=== PATIENT | female | born 1995 | race Caucasian/White ===

== ENCOUNTER 2019-07-30 12:27 | Emergency (ER) | payer OTHER, SELFPAY ==
[2019-07-30 12:33] VITALS: BP 90/52; PULSE 77; RESP 14; TEMP 36.9; O2SAT 98
[2019-07-30 14:16] LABS: Bacteria Urine Many (>30); RBC Urine 1-5/HPF (0-5/HPF); Squamous Epithelial Cell Urine 0-1 /HPF (0-5/HPF); WBC Urine 5-10/HPF (0-5/HPF)
[2019-07-30 14:17] LABS: Culture Indicated Urine Specimen Cultured
--- NOTE | 2019-07-30 14:52 | ED_ITS ---
HPI - Female Genitourinary <ELIAS Clark - Last Filed: 07/30/19 14:56> General Chief complaint: Urogenital-Female Stated complaint: UTI Time Seen by Provider: 07/30/19 13:24 Source: patient Mode of arrival: Ambulatory Limitations: no limitations History of Present Illness HPI Narrative: 23-year-old female with history of an appendectomy, presents to the emergency department complaining of dysuria and frequency for the past 3 days. She states she noticed today she had some lower abdominal pain and is worried she may have a urinary tract infection. She denies any history of uri nary tract infections, denies vaginal discharge or concern for STDs. Patient endorses a small amount of nausea with no vomiting. She denies flank pain, fevers, chills, dizziness, chest pain, shortness of breath, abdominal pain, blood in her urine, diarrhea, constipation, or other concerns. Related Data Previous Rx's Medication Instructions Recorded nitrofurantoin monohyd/m-cryst 100 mg PO Q12H 5 Days #10 cap 07/30/19 [Macrobid] Allergies Allergy/AdvReac Type Severity Reaction Status Date / Time No Known Drug Allergies Allergy Verified 07/30/19 12:35 Review of Systems <ELIAS Clark - Last Filed: 07/30/19 14:56> Review of Systems Narrative: REVIEW OF SYSTEMS: GENERAL: Denies fever or chills. HENT: No head trauma. CARDIOVASCULAR: No chest pain. RESPIRATORY: No shortness of breath or cough. GASTROINTESTINAL: No nausea, vomiting, or abdominal pain, see HPI. GENITOURINARY: Reports dysuria, See HPI. No vaginal discharge or dyspareunia. Denies concerns for STIs MUSCULOSKELETAL: No trauma. INTEGUMENTARY: No rash, lesions, or pruritus. NEURO: No memory loss or confusion. Patient History <ELIAS Clark - Last Filed: 07/30/19 14:56> Medical History No significant medical problems (Acute) Smoker (Acute) tobacco type: cigarettes alcohol intake frequency: 0-2 drinks per day Substance Use Type: does not use Exam <ELIAS Clark - Last Filed: 07/30/19 14:56> Narrative Exam Narrative: PHYSICAL EXAMINATION: GENERAL: Well groomed, alert, and cooperative. Answers questions promptly and appropriately. Vital signs noted. HENT: Normocephalic, atraumatic. Hearing intact. EYES: No periorbital swelling. CARDIOVASCULAR: Regular rate and rhythm. S1-S2 sounds heard. No murmurs P RESPIRATORY: Normal respiratory rate, trachea midline, airway patent. No stridor, nasal flaring or accessory muscle use. Lung sounds clear without wheezes or crackles. GASTROINTESTINAL: Bowel sounds normoactive. Abdomen is soft, slight lower abdominal tenderness with palpation. No organomegaly, no palpable masses. GENITALURINARY: No CVA tenderness. MUSCULOSKELETAL: Normal gait and coordination. Equal tone and mass bilaterally. SKIN: Warm, dry, soft, appropriate color for ethnicity. No lesions, rashes, or wounds. NEURO: Alert and Oriented X 3. Good coordination. No ataxia, or sensory deficits, or cognitive issues. PSYCH: Appropriate affect and mood. Initial Vital Signs Initial Vital Signs: Vital Signs Temperature 98.5 F 07/30/19 12:33 Pulse Rate 77 07/30/19 12:33 Respiratory Rate 14 07/30/19 12:33 Blood Pressure 90/52 L 07/30/19 12:33 Pulse Oximetry 98 07/30/19 12:33 <Zaida Lees DO - Last Filed: 07/31/19 07:37> Initial Vital Signs Initial Vital Signs: Vital Signs Temperature 98.5 F 07/30/19 12:33 Pulse Rate 77 07/30/19 12:33 Respiratory Rate 14 07/30/19 12:33 Blood Pressure 90/52 L 07/30/19 12:33 Pulse Oximetry 98 07/30/19 12:33 Course <ELIAS Clark - Last Filed: 07/30/19 14:56> Orders Ordered: ED Orders 07/30/19 13:47 Urine Culture Stat Urine Microscopic Stat Vital Signs Vital signs: Vital Signs - 8 hr 07/30/19 12:33 Temperature 98.5 F Pulse Rate 77 Respiratory Rate 14 Blood Pressure 90/52 L Pulse Oximetry 98 <Zaida Lees DO - Last Filed: 07/31/19 07:37> Orders Ordered: ED Orders 07/30/19 13:47 Urine Culture Stat Urine Microscopic Stat Vital Signs Vital signs: Vital Signs - 8 hr 07/30/19 12:33 Temperature 98.5 F Pulse Rate 77 Respiratory Rate 14 Blood Pressure 90/52 L Pulse Oximetry 98 MDM - Female Genitourinary <Kyleigh ELIAS Gee - Last Filed: 07/30/19 14:56> Medical Records Attestation: I reviewed the patient's medical records. Lab Data Attestation: I reviewed the patient's lab results. Labs: Lab Results 07/30/19 Range/Units 13:47 Urine RBC 1-5/hpf (0-5/HPF) Urine WBC 5-10/hpf H (0-5/HPF) Ur Squamous Epith Cells 0-1 /hpf (0-5/HPF) Urine Bacteria Many (>30) H (None) Ur Culture Indicated? Specimen cultured Point of Care Testing Test Results Negative Urine Dip Bedside Urine Glucose Negative Bedside Urine Bilirubin - Negative Bedside Urine Ketone - Negative Urine Specific [place] 1.010 Bedside Urine Occult Blood - Negative Bedside Urine pH 7.0 Bedside Urine Protein - Negative Bedside Urine Urobilinogen - Negative Bedside Urine Nitrite - Negative Bedside Urine Leukocytes ++ 125 Esterase [facility] Narrative Medical decision making narrative: Patient's symptoms are most likely caused by urinary tract infection. Less concern for an acute abdomen due to lack of s ignificant abdominal tenderness on examination, patient has a history of an appendectomy, and she does not have any other systemic symptoms such as vomiting, fevers, or chills. Less concern for pyelonephritis due to lack of vomiting or flank tenderness. Follow-up instructions discussed and return precautions given. <Zaida Lees DO - Last Filed: 07/31/19 07:37> Lab Data Labs: Lab Results 07/30/19 Range/Units 13:47 Urine RBC 1-5/hpf (0-5/HPF) Urine WBC 5-10/hpf H (0-5/HPF) Ur Squamous Epith Cells 0-1 /hpf (0-5/HPF) Urine Bacteria Many (>30) H (None) Ur Culture Indicated? Specimen cultured Point of Care Testing Test Results Negative Urine Dip Bedside Urine Glucose Negative Bedside Urine Bilirubin - Negative Bedside Urine Ketone - Negative Urine Specific [place] 1.010 Bedside Urine Occult Blood - Negative Bedside Urine pH 7.0 Bedside Urine Protein - Negative Bedside Urine Urobilinogen - Negative Bedside Urine Nitrite - Negative Bedside Urine Leukocytes ++ 125 Esterase Discharge Plan Departure Patient Disposition: Home Clinical Impression: Urinary tract infection Qualifiers: Urinary tract infection type: acute cystitis Hematuria presence: with hematuria Qualified Code(s): N30.01 - Acute cystitis with hematuria Discharge Date/Time: 07/30/19 15:04 Instructions: DI for Urinary Tract Infection (UTI) Activity Restrictions/Additional Instructions: Thank you for entrusting me with your care today. As discussed, appears your symptoms may be caused by urinary tract infection. I prescribed an antibiotic, please take this as directed. If your prescription needs to change we will call you in 2 days. Follow up with your primary care provider in the next few days if your symptoms persist. Please return emergency department if he develops worsening symptoms such as high fevers, uncontrollable vomiting, chest pain, severe abdominal pain, or other concerns. Prescriptions: New nitrofurantoin monohyd/m-cryst [Macrobid] 100 mg capsule 100 mg PO Q12H 5 Days Qty: 10 RF: 0
[2019-07-30 14:57] VITALS: BP 118/67; PULSE 73; RESP 16; O2SAT 98
== END 2019-07-30 15:04 | disposition home or self-care (01) ==
PROVIDERS: Emergency Medicine; Emergency Provider Nurse Practitioner
DX: N30.01 Acute cystitis with hematuria (principal)
CPT/HCPCS: 81003; 81015; 81025; 87077; 87086; 87147; 87186; 99282; 99283

== ENCOUNTER 2020-03-18 22:41 | Emergency (ER) | payer OTHER, SELFPAY ==
[2020-03-18 22:44] VITALS: BP 115/76; PULSE 66; RESP 16; TEMP 36.9; O2SAT 99
--- NOTE | 2020-03-19 04:12 | ED.EAR ---
HPI - Ear Problem General Chief complaint: Ear Stated complaint: rock stuck in her left ear Time Seen by Provider: 03/18/20 22:45 Source: patient Mode of arrival: Ambulatory Limitations: no limitations History of Present Illness HPI Narrative: 24F daily smoker without chronic medical problems presents with the chief complaint of foreign body in her left ear for a few hours. Her son was throwing gravel early tonight and some got in her ear. She has no trouble with hearing and denies drainage. She did not try to get it out. She has some discomfort but denies significant pain MD Complaint: foreign body Location: left ear Duration: constant Severity: mild Relieving factors: nothing Exacerbating factors: nothing Discharge from ear: no Treatment prior to arrival: none Related Data Allergies Allergy/AdvReac Type Severity Reaction Status Date / Time No Known Drug Allergies Allergy Verified 07/30/19 12:35 Review of Systems Constitutional Constitutional: Denies chills, Denies fatigue, Denies fever(s), Denies frequent falls, Denies lethargy and Denies weakness Eyes Eyes: Denies change in vision, Denies eye discharge, Denies irritation and Denies loss of vision ENT Ears, Nose, Mouth, and Throat: Denies change in voice, Denies dizziness, Denies neck pain, Denies sore throat and Denies throat swelling Comments: foreign body Cardiovascular Cardiovascular: Denies chest pain, Denies irregular heart rhythm, Denies lightheadedness, Denies palpitations, Denies dyspnea, Denies dyspnea on exertion and Denies orthopnea Respiratory Respiratory: Denies cough, Denies dyspnea, Denies dyspnea on exertion and Denies wheezing Gastrointestinal Gastrointestinal: Denies abdominal pain, Denies change in bowel habits, Denies diarrhea, Denies nausea and Denies vomiting Musculoskeletal Musculoskeletal: Denies neck pain and Denies numbness Integumentary/Breasts Skin/Breast: Denies pruritus, Denies erythema, Denies rash and Denies wounds Neurologic Neurologic: Denies behavioral changes, Denies confusion, Denies dizziness, Denies frequent falls, Denies loss of vision, Denies numbness and Denies weakness Psychiatric Psychiatric: Denies anxiety, Denies behavioral changes, Denies confusion, Denies depression, Denies homicidal ideation and Denies suicidal ideation Endocrine Endocrine: Denies fatigue, Denies flushing and Denies palpitations Hematologic/Lymphatic Hematologic/Lymphatic: Denies easy bruising Allergic/Immunologic Allergic/Immunologic: Denies urticaria, Denies throat swelling and Denies wheezing Patient History Medical History No significant medical problems (Acute) Smoker (Acute) Social History Smoking Status: Current every day smoker Smoking Status: Current every day smoker tobacco type: cigarettes alcohol intake frequency: 0-2 drinks per day Substance Use Type: does not use Exam Narrative Exam Narrative: GEN: AOx3 and in mild distress EYES: Pupils are equal, round, and reactive to light and accommodation. Extraoccular muscles are intact bilaterally. There is no subconjunctival hemorrhage or exudate. ENT: small smooth, round pebble in left EAC up against TM. No erythema, edema, bleeding or drainage. Brief attempt made to remove but unsuccessful. Small dab of petroleum jelly placed on tip of q tip and attempt to stick to pebble. This is unsuccessful. CHEST: Lungs are clear to auscultation bilaterally and free of wheezes, rales, or rhonchi. Heart rate is regular rhythm, there are no murmurs, clicks, rubs, or gallops. There is no chest wall tenderness. ABD: Abdomen is soft and nontender. There is no guarding or rebound. Bowel sounds are normal in all 4 quadrants. There is no mass or organomegaly. EXT: Full painless ROM of all extremities with no loss of sensation or strength. SKIN: Warm, pink, and dry. No erythema or rash Initial Vital Signs Initial Vital Signs: Vital Signs Temperature 98.5 F 03/18/20 22:44 Pulse Rate 66 03/18/20 22:44 Respiratory Rate 16 03/18/20 22:44 Blood Pressure 115/76 03/18/20 22:44 Pulse Oximetry 99 03/18/20 22:44 Course Orders Ordered: Discontinued Medications Bacitracin (Bacitracin) 1 applic TOP NOW ONE Stop: 03/18/20 23:03 Vital Signs Vital signs: Vital Signs - 8 hr 03/18/20 22:44 Temperature 98.5 F Pulse Rate 66 Respiratory Rate 16 Blood Pressure 115/76 Pulse Oximetry 99 Discharge Plan Departure Patient Disposition: Home Clinical Impression: Foreign body in ear Qualifiers: Encounter type: initial encounter Laterality: left Qualified Code(s): T16.2XXA - Foreign body in left ear, initial encounter Discharge Date/Time: 03/18/20 23:53 Instructions: DI for Removal of Foreign Body From Ear Activity Restrictions/Additional Instructions: *You have been diagnosed with [ left ear foreign body ] *What to do: *Take medications as directed *Follow up with Ear, Nose, Throat doctor in the morning, call for an appointment. Let them know you were seen in the Emergency Department and that we ask that you be seen in follow up *Return to ER if you should have any new, worsening or concerning symptoms Referrals: Manuel Yuen MD [Physician] -
== END 2020-03-18 23:53 | disposition home or self-care (01) ==
PROVIDERS: Emergency Provider Emergency Medicine
DX: T16.2XXA Foreign body in left ear, initial encounter (principal)
CPT/HCPCS: 99281

== ENCOUNTER 2020-04-09 21:13 | Emergency (ER) | payer OTHER, SELFPAY | END 2020-04-09 21:25 | disposition left against medical advice (07) | PROVIDERS: Emergency Provider Emergency Medicine ==

== ENCOUNTER 2021-05-06 18:15 | Emergency (ER) | payer SELFPAY ==
[2021-05-06 18:19] VITALS: BP 127/72; PULSE 65; RESP 17; TEMP 36.8; O2SAT 98; BMI 24.4
[2021-05-06 18:58] LABS: Add Manual Diff / Slide Review NO; Basophils Absolute Auto 100 /uL (0-100); Basophils Percent Auto 0.8 % (0-2); Eosinophils Absolute Auto 100 /uL (0-450); Eosinophils Percent Auto 1.1 % (2-4); Hemoglobin 13.6 g/dL (12.0-16.0); Lymphocytes Absolute Auto 1400 /uL (1100-4500); Lymphocytes Percent Auto 16.2 % (25-40); Mean Corpuscular Hemoglobin 32.8 PG (26-34); Mean Corpuscular Volume 96.5 fL (80-100); Monocytes Absolute Auto 500 /uL (0-900); Monocytes Percent Auto 5.5 % (3-14); Neutrophils Absolute Auto 6400 /uL (1500-7000); Neutrophils Percent Auto 76.4 % (50-75); Platelet Count 231 X10^3/uL (150-400); Red Blood Cell Count 4.14 X10^6/uL (4.0-5.2); Red Cell Distribution Width 13.3 % (11.6-14.8); White Blood Cell Count 8.4 X10^3/uL (4.5-11.0)
[2021-05-06 19:33] LABS: Alanine Aminotransferase 23 IU/L (<35); Albumin 4.3 g/dL (3.5-5.0); Albumin Globulin Ratio 1.3 (1.0-2.8); Alkaline Phosphatase 55 U/L (38-126); Aspartate Aminotransferase 42 IU/L (14-36); BUN Creatinine Ratio 13.6 (6-22); Bilirubin Total 0.5 mg/dL (0.2-1.3); Blood Urea Nitrogen 12 mg/dL (7-17); Calcium 9.7 mg/dL (8.4-10.2); Carbon Dioxide 27 mmol/L (22-32); Chloride 106 mmol/L (98-107); Estimated Glomerular Filt Rate > 60.0 mL/min (>60); Globulin 3.2 g/dL (1.7-4.1); Glucose 92 mg/dL (70-100); HEMOLYSIS < 15 (0-50); Lipase 96 U/L (23-300); Potassium 3.9 mmol/L (3.4-5.1); Sodium 138 mmol/L (137-145); Total Protein 7.5 g/dL (6.3-8.2)
--- NOTE | 2021-05-06 19:52 | ED.ABDPAIN ---
HPI - Abdominal Pain General Chief Complaint: Abdominal Pain Stated Complaint: KIDNEY PAIN Time Seen by Provider: 05/06/21 18:36 Source: patient Mode of arrival: Ambulatory History of Present Illness HPI narrative: 25F smoker without chronic medical problems presents with family and chief complaint of ongoing left flank pain with radiation around her left side and occasional suprapubic tenderness for upwards of a month. She states that she has increasing pain with motion and improvement with rest. She has been nauseated but denies any vomiting. She has had no fever or chills. She states it all started when she had UTI like symptoms including frequency of urination. She had been seen and evaluated at an outside facility and was treated for what sounds like a urine infection versus STD. Patient denies any vaginal bleeding and states that she has occasional discharge but not any more than normal. Related Data Previous Rx's Medication Instructions Recorded doxycycline hyclate 100 mg tablet 100 mg PO BID #20 tab 05/06/21 Allergies Allergy/AdvReac Type Severity Reaction Status Date / Time No Known Drug Allergies Allergy Verified 05/06/21 18:22 Review of Systems Review of Systems Narrative: GENERAL: Denies chills, fatigue, malaise, fever, sweats. HEENT: Denies sinus pain, ear pain, sore throat, difficulty swallowing, dizziness. RESPIRATORY: Denies dyspnea, cough, wheezing, hemoptysis, sputum. CARDIOVASCULAR: Denies chest pain, palpitations, orthopnea, edema, GASTROINTESTINAL: See HPI : See HPI MUSCULOSKELETAL: denies weakness, joint pain, or bony pain SKIN: Denies rash, skin lesions, or other NEUROLOGIC: Denies weakness, headache, numbness, change in speech, confusion, seizures, incoordination. PSYCHIATRIC: No concerning psychosocial issues. 12 point review of systems is negative except for those stated above Patient History Medical History No significant medical problems Smoker Social History Smoking Status: Current some day smoker Smoking Status: Current some day smoker tobacco type: cigarettes alcohol intake frequency: a few times a month Substance Use Type: marijuana Exam Narrative Exam Narrative: GENERAL: [25] year old patient appears stated age. Well-developed patient, in mild distress. HEAD: Atraumatic. Normocephalic. EYES: Pupils equal round and reactive. Extraocular motions intact. No scleral icterus. No injection or drainage. ENT: Nose without bleeding, purulent drainage. Throat without erythema, tonsillar hypertrophy or exudate. Airway patent. NECK: Trachea midline. Non tender CARDIOVASCULAR: Regular rate and rhythm without murmurs, gallops, or rubs. RESPIRATORY: Clear to auscultation. Breath sounds equal bilaterally. No wheezes, rales, or rhonchi. GASTROINTESTINAL: Abdomen soft, non-tender, nondistended. PELVIC: moderate clearish yellow discharge from cervical os. No fullness, pain on bimanual. Performed with patient permission and female nursing freight solicitor at bedside. EXTREMITIES: No edema or joint tenderness. BACK: Left flank tender to palpate no swelling, erythema, warmth, rash subcu emphysema NEURO: AOx3. SKIN: No rash or erythema of visible areas Initial Vital Signs Initial Vital Signs: Vital Signs Temperature 98.2 F 05/06/21 18:19 Pulse Rate 65 05/06/21 18:19 Respiratory Rate 17 05/06/21 18:19 Blood Pressure 127/72 05/06/21 18:19 Pulse Oximetry 98 05/06/21 18:19 Course Orders Ordered: ED Orders 05/06/21 18:53 Complete Blood Count AUTO DIFF Stat Comprehensive Metabolic Panel Stat Lipase Stat 05/06/21 19:52 CT kidney ureter bladder (KUB) Stat 05/06/21 22:13 Genital Culture Stat Wet Prep Tric BV Vero Stat Discontinued Medications Ceftriaxone Sodium (Ceftriaxone 1,000 Mg Vial) 500 mg IM NOW ONE Stop: 05/06/21 22:15 Last Admin: 05/06/21 22:38 Dose: 500 mg Documented by: ROGERS Lactated Ringer's (Lactated Ringers) 1,000 mls @ 1,000 mls/hr IV BOLUS ONE Stop: 05/06/21 20:51 Last Infusion: 05/06/21 21:25 Dose: 0 mls/hr Documented by: Admin: 05/06/21 20:05 Dose: 1,000 mls/hr Documented by: ROGERS Ketorolac Tromethamine (Ketorolac 30 Mg/Ml Vial) 15 mg IV NOW ONE Stop: 05/06/21 19:53 Last Admin: 05/06/21 20:05 Dose: 15 mg Documented by: ROGERS Lidocaine HCl (Lidocaine 1% 20 Ml) 2.1 ml INJ NOW ONE Stop: 05/06/21 22:15 Ondansetron HCl (Ondansetron 4 Mg/2 Ml Inj) 4 mg IV NOW ONE Stop: 05/06/21 19:53 Last Admin: 05/06/21 20:06 Dose: 4 mg Documented by: ROGERS Vital Signs Vital signs: Vital Signs - 8 hr 05/06/21 18:19 05/06/21 22:44 Temperature 98.2 F Pulse Rate 65 82 Respiratory Rate 17 16 Blood Pressure 127/72 120/76 Pulse Oximetry 98 98 MDM - Abdominal Pain Lab Data Result diagrams: 05/06/21 18:53 05/06/21 18:53 Labs: Lab Results 05/06/21 05/06/21 Range/Units 18:53 18:53 WBC 8.4 (4.5-11.0) X10^3/uL RBC 4.14 (4.0-5.2) X10^6/uL Hgb 13.6 (12.0-16.0) g/dL Hct 40.0 (36-46) % MCV 96.5 (80-100) fL MCH 32.8 (26-34) PG MCHC 34.0 (30-36) % RDW 13.3 (11.6-14.8) % Plt Count 231 (150-400) X10^3/uL Neut % (Auto) 76.4 H (50-75) % Lymph % (Auto) 16.2 L (25-40) % [place] % (Auto) 5.5 (3-14) % Eos % (Auto) 1.1 L (2-4) % Baso % (Auto) 0.8 (0-2) % Neut # (Auto) 6400 (0521-9484) /uL Lymph # (Auto) 1400 (1840-4689) /uL [place] # (Auto) 500 (0-900) /uL Eos # (Auto) 100 (0-450) /uL Baso # (Auto) 100 (0-100) /uL Sodium 138 (137-145) mmol/L Potassium 3.9 (3.4-5.1) mmol/L Chloride 106 (98-107) mmol/L Carbon Dioxide 27 (22-32) mmol/L BUN 12 (7-17) mg/dL Creatinine 0.88 (0.52-1.04) mg/dL Estimated GFR > 60.0 (>60) mL/min BUN/Creatinine Ratio 13.6 (6-22) Glucose 92 (70-100) mg/dL Calcium 9.7 (8.4-10.2) mg/dL Total Bilirubin 0.5 (0.2-1.3) mg/dL AST 42 H (14-36) IU/L ALT 23 (<35) IU/L Alkaline Phosphatase 55 (38-126) U/L Total Protein 7.5 (6.3-8.2) g/dL Albumin 4.3 (3.5-5.0) g/dL Globulin 3.2 (1.7-4.1) g/dL Albumin/Globulin Ratio 1.3 (1.0-2.8) Lipase 96 (23-300) U/L Point of care testing: Point of Care Testing Test Results Negative Urine Dip Bedside Urine Glucose Negative Bedside Urine Bilirubin - Negative Bedside Urine Ketone - Negative Urine Specific [place] 1.015 Bedside Urine Occult Blood - Negative Bedside Urine pH 6.0 Bedside Urine Protein - Negative Bedside Urine Urobilinogen - Negative Bedside Urine Nitrite - Negative Bedside Urine Leukocytes - Negative Esterase Imaging Data CT scan - abdomen/pelvis: Radiologist's Impression: Rabia Hawley 25 F [address] Scan ReportSigned Patient: Rabia Hawley [facility]#: [id number]: 1995Acct:[id number]/Sex: 25 / FDate of Service: 05/06/21Loc: EDAccession Number: [id number] Procedure: CT kidney ureter bladder (KUB) Ordering Provider: Misael Jane D.O. PROCEDURE: CT KIDNEY URETER BLADDER (KUB) INDICATIONS: left flank pain TECHNIQUE: Axial sections were acquired from the lung bases to the pubic symphysis. Coronal and sagittal reformats were performed. For radiation dose reduction, the following was used: automated exposure control, adjustment of mA and/or kV according to patient size. COMPARISON:None. FINDINGS: Image quality: Excellent. Lung bases: Unremarkable. Heart: No significant findings. URINARY: Right Kidney: No stones or hydronephrosis. Right Ureter: No hydroureter. Left Kidney: No stones or hydronephrosis. Left Ureter: No hydroureter. Bladder: Normal wall thickness. No stones. ABDOMEN: Liver: Unremarkable. Gallbladder: Contracted, but within normal limits. Biliary ducts: Unremarkable. Pancreas: Unremarkable. Spleen: Unremarkable. Adrenal Glands: Unremarkable. Stomach and Bowel: Stomach, small bowel loops, and colon are unremarkable. Appendix is not definitely visualized. No free fluid or inflammatory changes noted adjacent to the cecum. Peritoneum: No abnormal intraperitoneal fluid. Trace free fluid noted in the cul-de-sac of the pelvis which is within physiologic limits. No free air. Ventral Wall: No hernia. Abdominal Nodes: No enlarged retroperitoneal or mesenteric lymph nodes. Vessels: Aorta and inferior vena cava are normal in size. PELVIS: Pelvic Organs: Unremarkable. Pelvic Nodes: Unremarkable. Miscellaneous: No inguinal hernias are seen. Bones: Unremarkable. IMPRESSION: 1. No renal stone or hydronephrosis. 2. Appendix not definitely visualized. No secondary signs of appendicitis such as free fluid or inflammatory changes are noted adjacent to cecum. 3. Trace free fluid in the cul-de-sac of the pelvis which is within physiologic limits. 4. No dilated loops of bowel. Dictated by: Lizy Todd MD, PhD on 05/06/2021 at 20:19 Approved by: Lizy Todd MD, PhD on 05/06/2021 at 20:23 [facility] Narrative Medical decision making narrative: Multiple etiologies for patient's symptoms considered including: [Kidney stone vs. pyelo vs. bowel obstruction vs. PID vs. other] Patient's exam largely reassuring. Labs and imaging have no significant findings. Pelvic demonstates discharge. Given recent history, improvement on ABX and no other clear etiology PID considered, labs pending, treatment given Findings and discharge diagnosis discussed with patient/family followed by verbalization of understanding Return precautions discussed with patient/family whom verbalize understanding. Discharge Plan Departure Patient Disposition: Home Clinical Impression: Pelvic inflammatory disease (PID), Acute flank pain Instructions: DI for Pelvic Inflammatory Disease (PID) Activity Restrictions/Additional Instructions: *You have been diagnosed with [left-sided flank pain with cervical discharge. Possible pelvic inflammatory disease.] *What to do: *Please continue to take your regular medications as directed. [ ] New medication prescriptions sent to your pharmacy: [ ] [x ] New medication written as a paper prescription [ ] No new medications given *Please follow up with your primary care provider in 2-3 days, call for an appointment. Let them know you were seen in the Emergency Department and that we ask that you be seen in follow up. We will electronically transmit a record of today's note if your PCP is in our system *If you do not have a primary care provider please contact the [facility] Resource line at [phone]. They will ask some questions about your medical history and help get you set up with a doctor in the community. *Return to Emergency Department if you should have any new, worsening or concerning symptoms, such as [fever greater than 101 F, shaking chills, worsening pain, persistent vomiting or other bothersome symptoms] Prescriptions: New doxycycline hyclate 100 mg tablet 100 mg PO BID Qty: 20 RF: 0
[2021-05-06] MEDS: KETOROLAC 30 MG/ML VIAL 15 MG IV (20:05)
[2021-05-06] MEDS: LACTATED RINGERS 1,000 ML 1000 ML IV (20:05)
[2021-05-06] MEDS: ONDANSETRON 4 MG/2 ML INJ IV (20:06)
[2021-05-06] MEDS: cefTRIAXone 1,000 MG VIAL 500 MG IM (22:38)
[2021-05-06] MEDS: LIDOCAINE 1% (PF) 2 ML (22:39)
[2021-05-06 22:44] VITALS: BP 120/76; PULSE 82; RESP 16; O2SAT 98
== END 2021-05-06 22:45 | disposition home or self-care (01) ==
PROVIDERS: Emergency Provider Emergency Medicine
DX: N73.9 Female pelvic inflammatory disease, unspecified (principal); R10.9 Unspecified abdominal pain
CPT/HCPCS: 36415; 74176; 80053; 81003; 81025; 83690; 85025; 87070; 87077; 87147; 87205; 87210; 87252; 96361; 96372; 96374; 96375; 99284; 99285; J0696; J1885; J2405